=== PATIENT | male | born 1980 | race Hispanic/Latino ===

== ENCOUNTER 2016-09-06 10:53 | Outpatient (CLI) | payer MEDICARE ==
--- NOTE | 2016-09-06 11:45 | Cat Scan Report ---
CT UPPER EXTREMITY RIGHT WITHOUT CONTRAST INDICATION: Pain in right shoulder. COMPARISON: None similar. FINDINGS: Noncontrast axial, sagittal and coronal right shoulder CT constructions demonstrate mild AC joint degenerative spurring and numerous small subchondral cysts. Intact glenohumeral articulation with slight axillary humeral head degenerative spurring. Small humeral head bone islands. Unremarkable soft tissues. Clear imaged right lung with small peripheral apical bullae. CONCLUSION: Right AC joint arthropathy and few other findings, as described. Thank you for the opportunity to participate in this patient's care.
== END 2016-09-06 10:54 | disposition home or self-care (01) ==
LOC: CT 10:53
PROVIDERS: ATTEND Physical Medicine & Rehabilitation
DX: M12.811 Other specific arthropathies, not elsewhere classified, right shoulder (principal); M25.811 Other specified joint disorders, right shoulder